=== PATIENT | male | born 1960 | race African-American/Black ===

== ENCOUNTER 2017-02-27 13:42 | Inpatient (IN) ==
[2017-02-27] MEDS ORDERED: ONDANSETRON 4 MG/2 ML VIAL IV PRN (15:37)
[2017-02-27] MEDS ORDERED: ACETAMINOPHEN 325 MG TABLET PO PRN (15:37)
[2017-02-27] MEDS ORDERED: ZALEPLON 5 MG CAPSULE PO PRN (15:37)
--- NOTE | 2017-02-27 15:57 | Hospitalist History & Physical ---
Assessment and Plan (1) Acute on chronic renal failure Status: Acute Assessment and plan: Patient has a history of FSGS with minimal change disease who developed worsening renal failure after receiving a fenofibrate. Consulted Dr. Taylor, renal biopsy in am, Urine studies ordered. Pulse dose steroids. lasix 60 mg IV every 6 hours. Plan renal biopsy in am. Current Visit: Yes (2) Hypertension Status: Acute Assessment and plan: restart clonidine Current Visit: Yes (3) Swelling Status: Acute Assessment and plan: most likely due to renal failure but will check venous dopplers and echo Current Visit: Yes (4) Obstructive sleep apnea Status: Acute Assessment and plan: cpap from home at bedtime. Current Visit: Yes History of Present Illness Chief complaint: swelling History of present illness: Mr. Robbins is a 56 year old male with a history of hypertension,monae, chronic kidney disease and hyperlipidemia presents to Dr. Taylor's office with complaints of bilateral upper and lower extremity edema with shortness of breath. Patient reports a 40 pound weight gain due to excessive fluid. His creatinine increase to 3.94. Patient was on Lasix and metolazone at home but his urination has diminished. He was started on a new medication given to him by Dr. Funk. Dr. Taylor has informed me that this medication was fenofibrate. 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 Patient will be admitted for diuresis and IV Solu-Medrol and a renal biopsy in the morning Home Medications Medication Instructions Recorded Confirmed Type Aspirin EC Tab 81 mg PO DAILY 02/27/17 02/27/17 History Atorvastatin [Lipitor] 20 mg PO DAILY 02/27/17 02/27/17 History Furosemide Tab [Lasix Tab] 40 mg PO BID DIURETIC 02/27/17 02/27/17 History Omeprazole 20 mg PO DAILY 02/27/17 02/27/17 History Potassium Chloride [Klor-Con M20] 20 meq PO DAILY 02/27/17 02/27/17 History cloNIDine TAB [Catapres Tab] 0.2 mg PO BID 02/27/17 02/27/17 History metOLazone [Metolazone] 5 mg PO DAILY 02/27/17 02/27/17 History Allergies Allergy/AdvReac Type Severity Reaction Status Date / Time fenofibrate AdvReac Severe Difficulty Verified 02/27/17 15:46 Breathing Medical,Surgical,& Family Hx - Medical History Cardio: History of: Hypertension Endocrine: History of: Dyslipidemia No history of: Diabetes Mellitus (IDDM), Diabetes Mellitus (NIDDM) Respiratory: History of: Obstructive Sleep Apnea Musculoskeletal: History of: Herniated Disk (back surgery) - Surgical History Cardiac Surgeries: Patient Denies: Cardiac Catheterization Abdominal Surgeries: Surgical HX of: Appendectomy Reproductive Surgeries: Patient denies;: Genitourinary Surgery Orthopedic Surgeries: Surgical HX of;: Orthopedic Surgery (back surgery) - Family History Family History: Reports;: Family Cancer (mother), Family Hypertension (mother and daddy), Family Stroke (mother,brother), Additional Family History (aneursym brain ) Denies;: Family Diabetes - Social History Smoking Status: Never smoker Frequency of Alcohol Use: None Type of Drug Use: None Marital Status: Lives With:: Spouse Functional capacity: independent ambulation - Constitutional Constitutional: Present: weight gain. Absent: headache(s), weakness - EENT Eyes: Absent: blurry vision, diplopia Ears: Absent: decreased hearing, ear discharge Nose, mouth and throat: Absent: headache(s), sore throat - Cardiovascular Cardiovascular: Present: dyspnea, dyspnea on exertion, edema, orthopnea, palpitations. Absent: chest pain at rest, chest pain with activity - Respiratory Respiratory: Present: dyspnea, dyspnea on exertion, snoring. Absent: wheezing - Gastrointestinal Gastrointestinal: Present: nausea. Absent: constipation, cramping, diarrhea, vomiting - Genitourinary Genitourinary: Present: urinary frequency. Absent: difficulty urinating, dysuria - Neurological Neurological: Absent: focal weakness, headache(s), syncope - Psychiatric Psychiatric: Absent: anxiety, depression - Endocrine Endocrine: Present: heat intolerance. Absent: fatigue - Hematologic/Lymphatic Hematologic/Lymphatic: Absent: easy bleeding, easy bruising Exam - Constitutional Vitals: Period Temp Pulse Resp BP Sys/Arguello Pulse Ox Last 24 Hr 97.6 F-97.6 F 53-53 20-20 144-144/78-78 95-95 General appearance: no acute distress, morbidly obese - Head Head exam: Present: normal inspection, normocephalic - Eye Eye exam: Present: EOMI. Absent: scleral icterus Pupils: Present: FARHAT, normal accommodation - ENT ENT exam: Present: normal exam, normal external ear exam - Neck Neck exam: Absent: lymphadenopathy, thyromegaly - Respiratory Respiratory exam: Present: decreased breath sounds. Absent: rhonchi, wheezes - Cardiovascular Cardiovascular exam: Present: regular rate and rhythm. Absent: systolic murmur - GI/Abdominal GI/Abdominal exam: Present: normal bowel sounds, distended. Absent: tenderness - Extremities Exam Extremities exam: Present: normal capillary refill, edema - Neurological Exam Neurological exam: Present: alert, oriented X3, CN II-XII intact, reflexes normal. Absent: motor sensory deficit - Psychiatric Psychiatric exam: Present: normal affect, normal mood - Skin Skin exam: Present: normal color, warm Results - Labs Labs: Sodium 138, potassium 4.1, BUN 88, creatinine is 3.94, glucose 112. Urine showed 1+ glucose, 2+ blood, 3+ protein, 0-3 WBCs and RBCs few bacteria, few granular casts and 3+ sulf
[2017-02-27] MEDS ORDERED: methylPREDNISolone SOD SUC 125 MG/2 ML VIAL IV SCH (16:00)
[2017-02-27] MEDS ORDERED: GLUCAGON 1 MG VIAL IM PRN (16:04)
[2017-02-27] MEDS ORDERED: DEXTROSE 50% 25 GM/50 ML SYRINGE IV PRN (16:04)
[2017-02-27 16:23] LABS: Basophils % 0.2 % (0.0-0.8); Eosinophils # 0.2 10*3/uL (0.0-0.87); Eosinophils % 1.5 % (0.00-10.9); Hematocrit 44.4 VOL% (42.0-52.0); Hemoglobin 14.6 GM/DL (14.0-18.0); Immature Granulocytes % 0.5 %; Immature Granulocytes Absolute 0.06 #; Lymphocytes # 2.5 10*3/uL (1.4-4.0); Lymphocytes % 21.7 % (21.2-54.2); Mean Corpuscular HGB Conc 32.9 GM/DL (32-36); Mean Corpuscular Hemoglobin 28 PG (27-34); Mean Corpuscular Volume 85.1 FL (87-102); Mean Platelet Volume 11.2 FL (9.6-12.0); Monocytes # 0.6 10*3/uL (0.11-0.8); Monocytes % 5.5 % (1.7-12.7); Neutrophils # 8.1 10*3/uL (1.4-7.4); Neutrophils % 70.6 % (38.7-73.9); Platelet Count 499 T/CUMM (130-400); Red Blood Count 5.22 MC/CUMM (3.8-5.5); Red Cell Distribution Width 12.4 % (9.3-17.3); White Blood Count 11.5 T/CUMM (4-12)
[2017-02-27 16:36] LABS: PT Patient Result 10.5 SECS; Partial Thromboplastin Time 30.3 SECS (0-40)
--- NOTE | 2017-02-27 16:39 | XRay Report ---
XR chest 2V Date: 02/27/2017 3:46 PM History: Shortness of breath Comparison: 04/25/2011 Technique: PA and lateral chest Findings: The heart is normal in size. The lungs are clear with unremarkable mediastinum. Degenerative changes are noted. Impression: No acute cardiopulmonary pathology identified. PROCEDURE INTERPRETED AT [facility] DEPARTMENT OF RADIOLOGY Final Report Signed by: Dr. Zuleyma Del Cid
[2017-02-27 16:44] LABS: Alanine Aminotransferase 17 U/L (16-61); Alkaline Phosphatase 87 U/L (45-117); Aspartate Amino Transferase 22 U/L (0-37); Bilirubin,Direct < 0.10 MG/DL (0.0-0.20); Bilirubin,Indirect 0.3 MG/DL (0.0-1.0); Bilirubin,Total < 0.39 MG/DL (0.2-1.0); Total Protein 4.2 G/DL (6.4-8.3)
--- NOTE | 2017-02-27 16:44 | Ultrasound Report ---
Exam: Bilateral lower extremity venous Doppler ultrasound Comparison: None Clinical history: Leg edema Technique: Duplex scan of the lower extremity veins using B-mode/grayscale scaled imaging and Doppler spectral analysis and color flow. Findings: Major venous structures of the lower extremities demonstrate a normal course and caliber. Normal color-flow study and spectral analysis. There is normal compression and augmentation of bilateral common femoral, superficial femoral and popliteal veins. The proximal bilateral greater saphenous veins appear to be patent. 73 x 67 x 27 mm solid mass projecting in the upper medial right thigh location. This finding is echogenic. Impression: No evidence to suggest deep venous thrombosis within either lower extremity. 73 x 67 x 27 mm solid mass projecting the medial right upper thigh location. This finding is probably related to a lipoma but CT or MRI may be helpful for further evaluation. Ultrasound images were captured and stored. PROCEDURE INTERPRETED AT [facility] DEPARTMENT OF RADIOLOGY Final Report Signed by: Dr. Zuleyma Del Cid
--- NOTE | 2017-02-27 16:45 | Ultrasound Report ---
Exam: US renal Bilateral Date: 02/27/2017 3:37 PM Comparison: None Indication: Elevated creatinine Technique:[Multiple transabdominal real-time scans were obtained of the kidneys. Ultrasound images were captured and stored.] Findings: Right kidney measures 119 x 62 x 58 mm. Left kidney measures 110 x 65 x 65 mm. No hydronephrosis or mass. Inhomogeneous echogenicity in the kidneys. Impression: The kidneys are symmetric in size with no mass or hydronephrosis. Inhomogeneous echogenicity which can be seen with possible medical renal disease. PROCEDURE INTERPRETED AT [facility] DEPARTMENT OF RADIOLOGY Final Report Signed by: Dr. Zuleyma Del Cid
[2017-02-27 16:58] LABS: Magnesium 3.2 MG/DL (1.8-2.4)
[2017-02-27] MEDS: FUROSEMIDE 40 MG/4 ML VIAL IV SCH ×2 (17:30→21:39)
[2017-02-27] MEDS: INSULIN LISPRO 100 UNIT/ML SUBCUT SCH ×2 (17:36→21:38)
--- NOTE | 2017-02-27 17:45 | Nephrology Consult Note ---
History of Present Illness Chief complaint: Acute renal failure History of present illness: Mr. Robbins is a 56 year old male with a history of hypertension chronic kidney disease is followed by me in my clinic kidney disease clinic. The patient had a kidney biopsy done in 2010 that showed focal segmental glomerulosclerosis with tip lesions with some interstitial inflammation at that time. Moreover patient had a history of NSAID use during the time of the kidney biopsy. He had post steroid pulse his serum creatinine continued to improve as well as proteinuria improved. He had been doing well up until a few weeks ago serum creatinine noted to be 0.8 when he started noticing increase in swelling and fatigue. He went to his local doctor where he was found to have an elevated serum creatinine of 3.5. There was evidence of proteinuria noted by urinalysis. He was followed-up in my clinic today where lab work was confirmed. He had been on increased dose of steroids however no improvement. No fevers or chills. He gives a history that he had been on fenofibrate therapy for cholesterol management a few weeks ago. His lisinopril has been discontinued as well as the fenofibrate. He has been admitted now for further workup of his acute renal failure. Nephrology is consulted for further management of the acute renal failure. At this time, recommend the patient gets follow-up kidney biopsy. Have discussed the case with interventional radiology for kidney biopsy. We will do pulse steroids as this patient did respond to steroids back in 2010. Differential diagnoses includes: Minimal-change disease. FSGS. Diabetic nephropathy Home Medications Medication Instructions Recorded Confirmed Type Aspirin EC Tab 81 mg PO DAILY 02/27/17 02/27/17 History Atorvastatin [Lipitor] 20 mg PO DAILY 02/27/17 02/27/17 History Furosemide Tab [Lasix Tab] 40 mg PO BID DIURETIC 02/27/17 02/27/17 History Omeprazole 20 mg PO DAILY 02/27/17 02/27/17 History Potassium Chloride [Klor-Con M20] 20 meq PO DAILY 02/27/17 02/27/17 History cloNIDine TAB [Catapres Tab] 0.2 mg PO BID 02/27/17 02/27/17 History metOLazone [Metolazone] 5 mg PO DAILY 02/27/17 02/27/17 History Allergies Allergy/AdvReac Type Severity Reaction Status Date / Time fenofibrate AdvReac Severe Difficulty Verified 02/27/17 15:46 Breathing Medical,Surgical,& Family Hx - Medical History Cardio: History of: Hypertension Endocrine: History of: Dyslipidemia No history of: Diabetes Mellitus (IDDM), Diabetes Mellitus (NIDDM) Respiratory: History of: Obstructive Sleep Apnea Musculoskeletal: History of: Herniated Disk (back surgery) - Surgical History Cardiac Surgeries: Patient Denies: Cardiac Catheterization Abdominal Surgeries: Surgical HX of: Appendectomy Reproductive Surgeries: Patient denies;: Genitourinary Surgery Orthopedic Surgeries: Surgical HX of;: Orthopedic Surgery (back surgery) - Family History Family History: Reports;: Family Cancer (mother), Family Hypertension (mother and daddy), Family Stroke (mother,brother), Additional Family History (aneursym brain ) Denies;: Family Diabetes - Social History Smoking Status: Never smoker Frequency of Alcohol Use: None Type of Drug Use: None Review of Systems Constitutional: fatigue Cardiovascular: dyspnea, no chest pain at rest Respiratory: dyspnea Gastrointestinal: bloating, no abdominal pain Musculoskeletal: no arthralgias Exam - Vital Signs Vital signs: Period Temp Pulse Resp BP Sys/Arguello Pulse Ox Last 24 Hr 96.2 F-97.6 F 50-53 20-20 144-169/78-83 95-97 - General Appearance General appearance: well-developed, well-nourished, fatigue EENT: ATNC Neck: supple Respiratory: clear Cardiology: edema, regular rate, regular rhythm Gastrointestinal: normoactive bowel sounds, no tenderness, no guarding Neurologic: alert and oriented x3, CN 3-12 intact Musculoskeletal: no clubbing Psychiatric: mood/affect appropriate, cooperative Results - Labs CBC & BMP: 02/27/17 16:11 Assessment and Plan (1) Proteinuria Status: Acute Assessment and plan: Acute on chronic phenomenon. Will quantitate proteinuria. Plan for kidney biopsy. Patient has a history of minimal change versus FSGS that dates back to kidney biopsy done in 2010. This should respond to steroid pulse. Current Visit: Yes (2) Acute on chronic renal failure Status: Acute Assessment and plan: Daily BMP. Avoid nephrotoxic agents. Strict I's and O's. Daily weights. Agree with Lasix therapy. We will do pulse steroids for the next 3 days with 1 g stent Solu-Medrol for the next 3 days. Patient will transition to p.o. prednisone. Also making arrangements for kidney biopsy. Current Visit: Yes (3) Hypertension Status: Chronic Current Visit: Yes Qualifiers: Hypertension type: essential hypertension Qualified Code(s): I10 - Essential (primary) hypertension (4) Swelling Status: Acute Assessment and plan: Agree with Lasix therapy. Current Visit: Yes (5) Obstructive sleep apnea Status: Chronic Current Visit: Yes
[2017-02-27] MEDS: methylPREDNISolone SOD SUC INJ 1,000 MG in SODIUM CHLORIDE 0.9% 100 ML IV SCH (18:21)
[2017-02-27 19:33] LABS: Hepatitis A Ab IgM Quant 0.14 Index; Hepatitis A Ab IgM Result Negative (Negative); Hepatitis B Core IgM Quant < 0.05 Index; Hepatitis B Core IgM Result Negative (Negative); Hepatitis B Surface Ag Result Negative (Negative); Hepatitis C Virus Ab Quant 0.18 Index; Hepatitis C Virus Ab Result Negative (Negative)
[2017-02-27 19:49] LABS: Apearance,Urine CLEAR (Clear); Bacteria,Urine Occasional /HPF (Few); Bilirubin,Urine Negative (Negative); Blood, Urine Small mg/dL (Negative); Glucose,Urine (UA) 50 mg/dL (Negative); Hyaline Casts,Urine 4 /LPF (0-3); Ketones,Urine Negative (Negative); Mucus,Urine Occasional /LPF (Occasional); Nitrite,Urine Negative (Negative); Protein,Urine >=500 MG/DL; RBC,Urine 4 /HPF (0-4); Squamous Epithelial Cell,Urine Occasional /HPF (0-10); Urine Color Yellow (Yellow); Urine Urobilinogen < 2.0 EU/DL (0.2-1.0); WBC,Urine 4 /HPF (0-6)
[2017-02-27 20:06] LABS: Protein/Creatinine Ratio,Urine 10.3 RATIO
[2017-02-27] MEDS ORDERED: FUROSEMIDE 20 MG/2 ML VIAL ONE (21:34)
[2017-02-28 01:11] LABS: Osmolality, Serum 314 MOSM/KG (275-295)
[2017-02-28] MEDS: FUROSEMIDE 40 MG/4 ML VIAL IV SCH ×4 (04:14→21:30)
[2017-02-28 05:56] LABS: Risk Ratio 7.28; VLDL CHOLESTEROL 54.8 MG/DL
[2017-02-28] MEDS: INSULIN LISPRO 100 UNIT/ML SUBCUT SCH ×4 (07:35→20:13)
[2017-02-28 08:21] LABS: Alanine Aminotransferase 17 U/L (16-61); Alkaline Phosphatase 82 U/L (45-117); Aspartate Amino Transferase 16 U/L (0-37); Bilirubin,Total < 0.39 MG/DL (0.2-1.0); Blood Urea Nitrogen 89 MG/DL (7-18); Calcium 8.5 MG/DL (8.5-10.1); Glucose 142 MG/DL (74-106); Osmolality,Calculated 301.8 MOS/KG (273-304); Potassium 4.5 MMOL/L (3.5-5.1); Sodium 137 MMOL/L (136-145); Total Protein 4.1 G/DL (6.4-8.3)
[2017-02-28] MEDS: PANTOPRAZOLE 40 MG TABLET PO SCH (09:06)
[2017-02-28] MEDS: ATORVASTATIN 20 MG TABLET PO SCH (09:06)
--- NOTE | 2017-02-28 09:10 | IR History and Physical Update ---
IR Pre-Procedure - History and Physical H&P was reviewed, the patient examined and there: are no changes in the patients condition since last H&P was completed. Reason for procedure:: acute renal failure - Dictation Physical: refer to H&P completed by admitting physician - Physical Exam Vital Signs: Last Vital Signs Temp 96.5 F L 02/28/17 08:00 Pulse 47 L 02/28/17 08:00 Resp 20 02/28/17 07:05 BP 161/78 02/28/17 08:00 Pulse Ox 97 02/28/17 08:00 Mental Status: alert and oriented Heart: regular rate and rhythm Lung: clear to auscultation Abdomen: within normal limits - Sedation IR anesthesia plan for sedation: none ASA Class: II Airway Assessment: Class IV: Only hard palate visible - Risks Risks: Procedures explained. Risks discussed include, but not limited to, the following:[ bleeding, infection, injury to adjacent structures] All questions answered. The following alternatives were discussed:[ none] Risks and benefits discussed with: patient, spouse Consent obtained from: patient, spouse Assessment and Plan - Time spent with patient Time spent with patient: Less than 30 minutes (1) Acute on chronic renal failure Problem details: renal biopsy several years ago showe FSGS which responded to steroids Status: Acute Assessment and plan: plan for repeat biopsy today Current Visit: Yes
[2017-02-28] MEDS ORDERED: DIAZEPAM 5 MG TABLET PO ONE (09:12)
--- NOTE | 2017-02-28 11:55 | Nephrology Progress Note ---
Nephrology - PN: Subj Interval history: Patient is in the process of getting his kidney biopsy. No acute changes. Serum creatinine is noted be 3.9. At present, serologic workup has been unremarkable. DAMON unremarkable. Complement levels are normal. Hepatitis panel is normal. Pending studies for anti-GBM antibody. We will also check an HIV. Exam (PN)-Nephrology - Vital Signs Vital signs: Period Temp Pulse Resp BP Sys/Arguello Pulse Ox Last 24 Hr 96.2 F-97.6 F 47-78 16-22 144-175/68-97 95-98 - General Appearance General appearance: well-developed, well-nourished EENT: ATNC Neck: supple Respiratory: clear Cardiology: regular rate, regular rhythm Gastrointestinal: normoactive bowel sounds, no tenderness Neurologic: alert and oriented x3 Musculoskeletal: no clubbing Psychiatric: mood/affect appropriate - Lab 02/27/17 16:11 02/28/17 04:45 Most recent lab results Calcium 8.5 MG/DL (8.5-10.1) 02/28/17 04:45 Magnesium 3.2 MG/DL (1.8-2.4) H 02/27/17 16:11 Assessment and Plan (1) Proteinuria Status: Acute Assessment and plan: Acute on chronic phenomenon. Will quantitate proteinuria. Plan for kidney biopsy. Patient has a history of minimal change versus FSGS that dates back to kidney biopsy done in 2010. This should respond to steroid pulse. We will check HIV. Hepatitis panel is normal. Pending anti-GBM Current Visit: Yes (2) Acute on chronic renal failure Problem details: renal biopsy several years ago showe FSGS which responded to steroids Status: Acute Assessment and plan: Daily BMP. Avoid nephrotoxic agents. Strict I's and O's. Daily weights. Agree with Lasix therapy. We will do pulse steroids for the next 3 days with 1 g stent Solu-Medrol for the next 3 days. Patient will transition to p.o. prednisone. Current Visit: Yes (3) Hypertension Status: Chronic Current Visit: Yes Qualifiers: Hypertension type: essential hypertension Qualified Code(s): I10 - Essential (primary) hypertension (4) Swelling Status: Acute Assessment and plan: Agree with Lasix therapy. Current Visit: Yes (5) Obstructive sleep apnea Status: Chronic Current Visit: Yes
--- NOTE | 2017-02-28 12:11 | Post Interventional Procedure ---
Pre-op diagnosis: acute on chronic renal failure of unknown cause Post-op diagnosis: same Procedure: random renal biopsy Contrast: none Flouroscopy: none Radiologist: Kendrick Bush Anesthesia: local Specimens: other (4 total 18 ga core samples sent for renal path) Estimated blood loss: none Complications: none Condition: stable Description/Findings: lower pole of the left kidney targeted for biopsy patient tolerated well Assessment and Plan - Time spent with patient Time spent with patient: Less than 30 minutes (1) Acute on chronic renal failure Problem details: renal biopsy several years ago showe FSGS which responded to steroids Status: Acute Assessment and plan: plan for repeat biopsy today Current Visit: Yes
[2017-02-28] MEDS: methylPREDNISolone SOD SUC INJ 1,000 MG in SODIUM CHLORIDE 0.9% 100 ML IV SCH (12:36)
[2017-02-28 13:25] LABS: HIV Antigen/Antibody Result Nonreactive (Nonreactive)
--- NOTE | 2017-02-28 14:13 | CT Report ---
CT biopsy renal LT Clinical Information: 56-year-old male with acute on chronic renal failure and remote biopsy several years ago demonstrating FSGS which responded to steroids. Physician: Dr. Bush Technique: Informed consent was obtained from the patient. Full explanation of the nature of the procedure, alternatives and risks were discussed, including risks of bleeding, infection and potential inability to diagnose with needle technique. Adjacent vascular and organ injury were also fully discussed. He expressed understanding and a desire to proceed. Formal timeouts were performed, per protocol. Local anesthesia only was used for the procedure. The lower pole left kidney was targeted on noncontrast CT scanning of the abdomen. CT guided localization of the cortex of the left kidney at the lower pole. Under real time guidance, 4 total core biopsies were obtained using an 18-gauge system and submitted in fixative for renal specific pathologic analysis. Follow-up imaging demonstrated no evidence of pneumothorax, hemorrhage or other immediate complication. Estimated blood loss less than 5 cc. Total number of images for this study: 129 Conclusion: Technically successful CT guided random renal biopsy as detailed above. PROCEDURE INTERPRETED AT [facility] DEPARTMENT OF RADIOLOGY Final Report Signed by: Kendrick Bush
--- NOTE | 2017-02-28 15:11 | Hospitalist Progress Note ---
Assessment and Plan (1) Acute on chronic renal failure Problem details: renal biopsy several years ago showe FSGS which responded to steroids Status: Acute Assessment and plan: Patient has a history of FSGS urine output is good but creatinine has remained unchanged. Workup pending Current Visit: Yes (2) Hypertension Status: Chronic Assessment and plan: Not controlled on clonidine, will add Norvasc 5 mg daily Current Visit: Yes Qualifiers: Hypertension type: essential hypertension Qualified Code(s): I10 - Essential (primary) hypertension (3) Swelling Status: Acute Assessment and plan: venous dopplers negative, echo done by reading pending Current Visit: Yes (4) Obstructive sleep apnea Status: Chronic Assessment and plan: cpap from home at bedtime. Current Visit: Yes Hospitalist: Subjective Interval history: Creatinine is relatively unchanged from yesterday. Patient refused Sandoval. post void residual 60 ml, UO 1450 Exam - Constitutional Vitals: Period Temp Pulse Resp BP Sys/Arguello Pulse Ox Last 24 Hr 96.2 F-97.6 F 47-78 15-22 136-178/68-97 93-98 Exam: Heart Rate-[RRR] Lungs-[CTAB but very diminished ] GI-[+bs distended from edema] Ext-[3+ edema] Neuro [Motor 5/5], [alert and oriented times 3] psych [normal mood and affect] General [no acute distress] Results - Labs CBC & BMP: 02/27/17 16:11 02/28/17 04:45 Lab Results: I have reviewed the past 24 hour labs - Diagnostic Findings Procedure: Chest x-ray: report reviewed by me (Clear), Ultrasound: report reviewed by me (No DVT does have a lipoma on the right thigh), X-ray: report reviewed by me (Ultrasound of the kidneys symmetric in size no hydronephrosis evidence of medical renal disease is present however)
[2017-02-28] MEDS: amLODIPine 5 MG TABLET PO SCH (16:00)
--- NOTE | 2017-02-28 17:46 | ECHO Report ---
Ramesh Robbins Exam Date: 02/28/2017 07:34 Referring Physician: Technologist: quiana Lara ARDMS, RVT Age: 56 Ht (in): 67 Wt (lb): 297 Gender: M Exam Location: [facility] Echo Indications: Shortness of breath, Acute hypertension, MER, Dyslipidemia, Renal failure BP: 144 / 78 HR: 69 Rhythm: Sinus Technical Quality: IMPRESSIONS Technically difficult study Normal chamber sizes Normal LV systolic function with ejection fraction estimated 65% without obvious wall motion normality No significant valvular abnormality noted MEASUREMENTS (Male / Female) Normal Values 2D ECHO LV Diastolic Diameter PLAX 5.1 cm 4.2 - 5.9 / 3.9 - 5.3 cm LV Systolic Diameter PLAX 3.0 cm LV Fractional Shortening PLAX 41.9 % IVS Diastolic Thickness 0.6 cm 0.6 - 1.0 / 0.6 - 0.9 cm LVPW Diastolic Thickness 1.0 cm 0.6 - 1.0 / 0.6 - 0.9 cm RV Internal Dim ED PLAX 4.0 cm Aortic Root Diameter 2.9 cm LA Systolic Diameter LX 3.0 cm 3.0 - 4.0 / 2.7 - 3.8 cm FINDINGS Left Ventricle Normal left ventricular cavity size. Normal left ventricular wall thickness. Left ventricular ejection fraction is estimated at 65%. Right Ventricle Right Atrium The right atrium is normal in size. Left Atrium The left atrium is normal in size. Mitral Valve Morphologically normal mitral valve without significant stenosis or prolapse. There is no mitral regurgitation. Aortic Valve Morphologically normal aortic valve without significant sclerosis or stenosis. There is no aortic regurgitation. Tricuspid Valve Morphologically normal tricuspid valve without significant stenosis or regurgitation. Pulmonary artery systolic pressure is normal. Pulmonic Valve Morphologically normal pulmonic valve without significant stenosis. There is no pulmonic regurgitation. Pericardium Normal pericardium without effusion. Aorta Normal ascending aorta dimension. Zachariah Luke (Electronically Signed) Final Date: 28 February 2017 17:46
[2017-02-28] MEDS ORDERED: FUROSEMIDE 100 MG/10 ML VIAL ONE (19:51)
[2017-03-01] MEDS: FUROSEMIDE 40 MG/4 ML VIAL IV SCH ×3 (03:43→20:57)
[2017-03-01 05:41] LABS: Basophils % 0.1 % (0.0-0.8); Hematocrit 42.9 VOL% (42.0-52.0); Hemoglobin 14.4 GM/DL (14.0-18.0); Immature Granulocytes % 0.6 %; Immature Granulocytes Absolute 0.07 #; Lymphocytes # 1.3 10*3/uL (1.4-4.0); Lymphocytes % 10.7 % (21.2-54.2); Mean Corpuscular HGB Conc 33.6 GM/DL (32-36); Mean Corpuscular Hemoglobin 28 PG (27-34); Mean Corpuscular Volume 83.8 FL (87-102); Mean Platelet Volume 11.3 FL (9.6-12.0); Monocytes # 0.3 10*3/uL (0.11-0.8); Monocytes % 2.5 % (1.7-12.7); Neutrophils # 10.1 10*3/uL (1.4-7.4); Neutrophils % 86.1 % (38.7-73.9); Platelet Count 520 T/CUMM (130-400); Red Blood Count 5.12 MC/CUMM (3.8-5.5); Red Cell Distribution Width 12.3 % (9.3-17.3); White Blood Count 11.7 T/CUMM (4-12)
[2017-03-01 06:14] LABS: Albumin 1.1 G/DL (3.4-5.0); Calcium 7.8 MG/DL (8.5-10.1); Phosphorous 8.2 MG/DL (2.5-4.9); Potassium 4.9 MMOL/L (3.5-5.1)
[2017-03-01] MEDS: INSULIN LISPRO 100 UNIT/ML SUBCUT SCH ×4 (07:24→20:26)
[2017-03-01] MEDS: methylPREDNISolone SOD SUC INJ 1,000 MG in SODIUM CHLORIDE 0.9% 100 ML IV SCH (09:40)
[2017-03-01] MEDS: PANTOPRAZOLE 40 MG TABLET PO SCH (09:41)
[2017-03-01] MEDS: amLODIPine 5 MG TABLET PO SCH (09:41)
[2017-03-01] MEDS: ATORVASTATIN 20 MG TABLET PO SCH (09:41)
--- NOTE | 2017-03-01 09:43 | Nephrology Progress Note ---
Nephrology - PN: Subj Interval history: Mr. Robbins is seen in follow-up of his nephrotic range proteinuria and rising creatinine. He underwent renal biopsy yesterday and hopefully will hear the results of that today. Previous biopsy several years ago demonstrated focal segmental glomerulosclerosis and he responded to steroid therapy. He has received empiric steroid therapy since being here and has had his third dose of pulse steroids today. I think it is reasonable at this point to assume that this is focals segmental glomerulosclerosis again and began lower dose prednisone tomorrow along with CellCept. He has generous peripheral edema but is not short of breath. We have encouraged him to be up and around. Will increase his diuretic dose to 160 mg of Lasix IV every 12 hours and add Zaroxolyn 5 mg daily. We have coordinated care with Dr. Harriet Jackson. Exam (PN)-Nephrology - Vital Signs Vital signs: Period Temp Pulse Resp BP Sys/Arguello Pulse Ox Last 24 Hr 96.8 F-98 F 47-79 15-20 132-178/55-97 93-99 - Lab 03/01/17 05:26 03/01/17 05:26 Most recent lab results Calcium 7.8 MG/DL (8.5-10.1) L 03/01/17 05:26 Phosphorus 8.2 MG/DL (2.5-4.9) H 03/01/17 05:26 Magnesium 3.2 MG/DL (1.8-2.4) H 02/27/17 16:11
[2017-03-01] MEDS: metOLazone 5 MG TABLET PO SCH (10:25)
--- NOTE | 2017-03-01 14:54 | Hospitalist Progress Note ---
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 Davey is awaiting renal biopsy results, he has increased lasix 160 mg IV every 12 hours with zaroxlyn. Patient will finish his last day of pulse steroids today and be decreased to prednisone 30 mg and started on CellCept tomorrow Current Visit: Yes (2) Hypertension Status: Chronic Assessment and plan: may need to stop clonidine due to bradycardia, but he is rather asymptomatic. Current Visit: Yes Qualifiers: Hypertension type: essential hypertension Qualified Code(s): I10 - Essential (primary) hypertension (3) Obstructive sleep apnea Status: Chronic Assessment and plan: compliant with cpap Current Visit: Yes Hospitalist: Subjective Interval history: Patient feels like he is getting off some fluid. His creatinine has worsened. I discussed his case with Dr. Moises Davey and he is going to lower the steroid dose beginning tomorrow and start some CellCept. Urine output from yesterday was 1950 Exam - Constitutional Vitals: Period Temp Pulse Resp BP Sys/Arguello Pulse Ox Last 24 Hr 97 F-98 F 47-79 18-20 129-177/55-89 96-99 Exam: Heart Rate-[RRR] Lungs-[CTAB ] GI-[+bs edema is better Ext-[2+ edema] Neuro [Motor 5/5], [alert and oriented times 3] psych [Pleasant mood and affect] General [no acute distress] Results - Labs CBC & BMP: 03/01/17 05:26 03/01/17 05:26 Lab Results: I have reviewed the past 24 hour labs Labs: urine cx negative - Diagnostic Findings Procedure: Ultrasound: report reviewed by me (EF 65% no other abnormalities appreciated.)
[2017-03-01] MEDS: MYCOPHENOLATE MOFETIL 250 MG CAPSULE PO SCH (20:53)
[2017-03-02 03:40] LABS: Albumin 1.2 G/DL (3.4-5.0); Osmolality,Calculated 310.8 MOS/KG (273-304); Phosphorous 7.8 MG/DL (2.5-4.9); Potassium 4.2 MMOL/L (3.5-5.1)
[2017-03-02] MEDS: INSULIN LISPRO 100 UNIT/ML SUBCUT SCH (08:30)
[2017-03-02] MEDS: MYCOPHENOLATE MOFETIL 250 MG CAPSULE PO SCH ×2 (08:49→20:15)
[2017-03-02] MEDS: ATORVASTATIN 20 MG TABLET PO SCH (08:49)
[2017-03-02] MEDS: metOLazone 5 MG TABLET PO SCH (08:50)
[2017-03-02] MEDS: amLODIPine 5 MG TABLET PO SCH (08:50)
[2017-03-02] MEDS: PANTOPRAZOLE 40 MG TABLET PO SCH (08:51)
[2017-03-02] MEDS: predniSONE 10 MG TABLET PO SCH (08:53)
[2017-03-02] MEDS: FUROSEMIDE 40 MG/4 ML VIAL IV SCH ×2 (08:57→20:17)
[2017-03-02] MEDS ORDERED: FUROSEMIDE 100 MG/10 ML VIAL ONE (08:59)
--- NOTE | 2017-03-02 11:25 | Nephrology Progress Note ---
Nephrology - PN: Subj Interval history: Patient denies shortness of breath. Review of systems GI denies nausea or vomiting Physical exam general patient is chronically ill-appearing, he has 2+ lower extremity edema Kidney biopsy report shows focal segmental glomerulosclerosis, acute tubular injury, no significant immunofluorescence, and some thin basement membrane disease Assessment/plan 1. Acute renal failure-this patient states his creatinine has only risen recently. Today his creatinine is 4.7 stable from yesterday 2. Proteinuria-patient had a urine protein to creatinine ratio that is 10 however I am not sure what the units on the protein are, I am going to repeat a microalbumin to creatinine ratio hopefully the lab will tell us whether it is milligrams per gram of creatinine or grams per gram of creatinine. Based on his urine dipstick being greater than 500 mg/dL I would suspect that he has significant proteinuria but would like a better quantification. 3. Focal segmental glomerulosclerosis-patient has FSGS by kidney biopsy however I am not sure that this is indicative of a primary FSGS which one would treat with steroids and immunosuppressive's. This lesion at this point may be more indicative of scarring. 4. Acute tubular injury-this patient has moderate acute tubular injury by kidney biopsy, this may be the primary pathology responsible for his acute rise in creatinine and protein leakage, if this is the case I am not sure that he would need continued steroid and immunosuppressive therapy. Again I am going to try and quantify his protein leakage better with the microalbumin to creatinine ratio. 5. Volume overload-patient continues on diuretics, patient states that this issue developed about a week after starting a cholesterol-lowering medication in the form of fenofibrate, he noticed some skin rash associated when he started taking this medicine as well. Exam (PN)-Nephrology - Vital Signs Vital signs: Period Temp Pulse Resp BP Sys/Arguello Pulse Ox Last 24 Hr 96.2 F-98 F 45-58 18-20 129-157/60-82 95-99 - Lab 03/01/17 05:26 03/02/17 02:20 Most recent lab results Calcium 7.0 MG/DL (8.5-10.1) L 03/02/17 02:20 Phosphorus 7.8 MG/DL (2.5-4.9) H 03/02/17 02:20 Magnesium 3.2 MG/DL (1.8-2.4) H 02/27/17 16:11
[2017-03-02 13:49] LABS: Microalbum/Creat Ratio Random 5302.3 RATIO (0-30)
--- NOTE | 2017-03-02 15:25 | Hospitalist Progress Note ---
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 Continue prednisone and CellCept Current Visit: Yes (2) Hypertension Status: Chronic Assessment and plan: Controlled Current Visit: Yes Qualifiers: Hypertension type: essential hypertension Qualified Code(s): I10 - Essential (primary) hypertension (3) Obstructive sleep apnea Status: Chronic Assessment and plan: compliant with cpap Current Visit: Yes (4) Hyperglycemia Status: Acute Assessment and plan: Hemoglobin A1c 5.2, stop insulin sliding scale. Current Visit: Yes Hospitalist: Subjective Interval history: Biopsy received yesterday showed focal glomerulosclerosis, minimal change disease. Patient feels much better today as he is diuresed well. Exam - Constitutional Vitals: Period Temp Pulse Resp BP Sys/Arguello Pulse Ox Last 24 Hr 96.2 F-98 F 45-76 18-20 131-157/60-82 95-99 Exam: Heart Rate-[RRR] Lungs-[CTAB ] GI-[+bs soft and nontender Ext-[2+ edema but better] Neuro [Motor 5/5], [alert and oriented times 3] psych [Pleasant mood and affect] General [no acute distress] Results - Labs CBC & BMP: 03/01/17 05:26 03/02/17 02:20 Lab Results: I have reviewed the past 24 hour labs
[2017-03-02] MEDS ORDERED: LACTULOSE 20 GM/30 ML UDCUP PO PRN (17:34)
[2017-03-02] MEDS ORDERED: BISACODYL 5 MG TABLET PO PRN (17:34)
[2017-03-03 05:36] LABS: Albumin 1.1 G/DL (3.4-5.0); Calcium 7.2 MG/DL (8.5-10.1); Osmolality,Calculated 314.8 MOS/KG (273-304); Phosphorous 7.7 MG/DL (2.5-4.9)
[2017-03-03] MEDS ORDERED: FUROSEMIDE 20 MG/2 ML VIAL ONE ×2 (08:11→08:13)
[2017-03-03] MEDS: ATORVASTATIN 20 MG TABLET PO SCH (08:23)
[2017-03-03] MEDS: PANTOPRAZOLE 40 MG TABLET PO SCH (08:23)
[2017-03-03] MEDS: amLODIPine 5 MG TABLET PO SCH (08:23)
[2017-03-03] MEDS: metOLazone 5 MG TABLET PO SCH (08:23)
[2017-03-03] MEDS: MYCOPHENOLATE MOFETIL 250 MG CAPSULE PO SCH ×2 (08:23→20:31)
[2017-03-03] MEDS: predniSONE 10 MG TABLET PO SCH (08:23)
[2017-03-03] MEDS: FUROSEMIDE 40 MG/4 ML VIAL IV SCH ×2 (08:24→20:33)
--- NOTE | 2017-03-03 10:46 | Hospitalist Progress Note ---
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 Renal biopsy shows focal glomerulosclerosis with minimal change disease Current Visit: Yes (2) Hypertension Status: Chronic Assessment and plan: Controlled Current Visit: Yes Qualifiers: Hypertension type: essential hypertension Qualified Code(s): I10 - Essential (primary) hypertension (3) Obstructive sleep apnea Status: Chronic Assessment and plan: compliant with cpap Current Visit: Yes (4) Hyperglycemia Status: Acute Assessment and plan: Hemoglobin A1c 5.2, stop insulin sliding scale. Current Visit: Yes Hospitalist: Subjective Interval history: Patient has no complaints today. His creatinine has improved today. His is not at bedside today. He is hoping to go home soon. I will defer to renal. Dr. Taylor will return tomorrow Exam - Constitutional Vitals: Period Temp Pulse Resp BP Sys/Arguello Pulse Ox Last 24 Hr 96.8 F-97.8 F 48-76 18-19 136-150/64-80 94-98 Exam: Heart Rate-[RRR] Lungs-[CTAB ] GI-[+bs soft and nontender Ext-[2+ edema but better] Neuro [Motor 5/5], [alert and oriented times 3] psych [Pleasant mood and affect] General [no acute distress] Results - Labs CBC & BMP: 03/01/17 05:26 03/03/17 04:14 Lab Results: I have reviewed the past 24 hour labs Labs: Urine culture negative, HIV negative, complement 50 within normal range
--- NOTE | 2017-03-03 14:28 | Nephrology Progress Note ---
Nephrology - PN: Subj Interval history: Patient denies shortness of breath. Review of systems GI denies nausea or vomiting Physical exam general patient in no acute distress Assessment/plan 1. Acute renal failure-patient status post renal biopsy-this showed focal segmental glomerulosclerosis as well as thin basement membrane processes and acute tubular injury. He is currently getting prednisone 30 mg a day and mycophenolate mofetil. We will continue this treatment unchanged. Whether the FSGS represents an active primary recurrent lesion versus some previous scarring is difficult to say I will defer treatment changes to primary greeter Dr. Taylor 2. Proteinuria-this patient has about 5000 mg of albumin leaking in his urine per day 3. Obesity 4. Hypertension 5. Volume overload-patient's on Lasix 160 mg IV twice a day and metolazone his weight is down about a KG from yesterday we will continue this treatment unchanged. Exam (PN)-Nephrology - Vital Signs Vital signs: Period Temp Pulse Resp BP Sys/Arguello Pulse Ox Last 24 Hr 96.1 F-97.8 F 45-66 18-19 142-150/64-80 94-98 - Lab 03/01/17 05:26 03/03/17 04:14 Most recent lab results Calcium 7.2 MG/DL (8.5-10.1) L 03/03/17 04:14 Phosphorus 7.7 MG/DL (2.5-4.9) H 03/03/17 04:14 Magnesium 3.2 MG/DL (1.8-2.4) H 02/27/17 16:11
--- NOTE | 2017-03-04 08:42 | Hospitalist Progress Note ---
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 Focal segmental glomerulosclerosis with proteinuria 2. Hypertension Plan: Continue diuretics and immunosuppressives under the direction of nephrology. He appears to be diuresing well, at least by measurement of body weight. We may be approaching maximal hospital benefit. Defer discharge decision to nephrology. This note was completed using [employer] voice recognition software. There may be hair and makeup designer errors as a result. Current Visit: Yes Qualifiers: Acute renal failure type: with other specified pathological lesion Hospitalist: Subjective Interval history: Follow-up focal segmental glomerulosclerosis with chronic kidney disease and nephrotic syndrome. The patient continues to complain of edema. I note that he has lost 4 kg over the past 48 hours. He continues to diurese well. Nephrology is managing the kidney disease, including immunosuppressive's. The patient's appetite is good. He ate all of his breakfast. Exam - Constitutional Vitals: Period Temp Pulse Resp BP Sys/Arguello Pulse Ox Last 24 Hr 96.1 F-98.3 F 45-51 17-20 144-183/67-84 95-97 Vital signs are noted above. Heart is regular with distant tones and no murmur detected. Lungs are clear with no rales or wheezes. Abdomen is protuberant with positive bowel sounds. He has several millimeters of edema. He is awake and alert Results - Labs CBC & BMP: 03/01/17 05:26 03/03/17 04:14 Lab Results: I have reviewed the past 24 hour labs
[2017-03-04] MEDS: ATORVASTATIN 20 MG TABLET PO SCH (09:18)
[2017-03-04] MEDS: amLODIPine 5 MG TABLET PO SCH (09:18)
[2017-03-04] MEDS: predniSONE 10 MG TABLET PO SCH (09:18)
[2017-03-04] MEDS: PANTOPRAZOLE 40 MG TABLET PO SCH (09:19)
[2017-03-04] MEDS: MYCOPHENOLATE MOFETIL 250 MG CAPSULE PO SCH ×2 (09:19→20:52)
[2017-03-04] MEDS: metOLazone 5 MG TABLET PO SCH (09:20)
[2017-03-04] MEDS: FUROSEMIDE 40 MG/4 ML VIAL IV SCH (09:20)
--- NOTE | 2017-03-04 12:32 | Nephrology Progress Note ---
Nephrology - PN: Subj Interval history: Patient is in the process of getting his kidney biopsy. No acute changes. Serum creatinine is noted be 3.9. At present, serologic workup has been unremarkable. DAMON unremarkable. Complement levels are normal. Hepatitis panel is normal. Pending studies for anti-GBM antibody. We will also check an HIV. 03/04/2017. The patient is resting comfortably. Kidney biopsy showed evidence of focal segmental nephrosclerosis. He has received pulse steroids. Continues to have edema. Serum creatinine is noted to be 4.5. At this time continuing with current management for this patient. Exam (PN)-Nephrology - Vital Signs Vital signs: Period Temp Pulse Resp BP Sys/Arguello Pulse Ox Last 24 Hr 96.4 F-98.3 F 45-51 17-20 146-183/72-84 95-97 - General Appearance General appearance: well-developed, well-nourished Neck: supple Respiratory: clear - Lab 03/01/17 05:26 03/03/17 04:14 Most recent lab results Calcium 7.2 MG/DL (8.5-10.1) L 03/03/17 04:14 Phosphorus 7.7 MG/DL (2.5-4.9) H 03/03/17 04:14 Magnesium 3.2 MG/DL (1.8-2.4) H 02/27/17 16:11 Assessment and Plan (1) Proteinuria Status: Acute Assessment and plan: Acute on chronic phenomenon. Will quantitate proteinuria. Plan for kidney biopsy. Patient has a history of minimal change versus FSGS that dates back to kidney biopsy done in 2010. FSGS. 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 Avoid nephrotoxic agents. Strict I's and O's. Daily weights. Agree with Lasix therapy. We will do pulse steroids for the next 3 days with 1 g stent Solu-Medrol for the next 3 days. Patient will transition to p.o. prednisone. Current Visit: Yes Qualifiers: Acute renal failure type: with other specified pathological lesion (3) Hypertension Status: Chronic Current Visit: Yes Qualifiers: Hypertension type: essential hypertension Qualified Code(s): I10 - Essential (primary) hypertension (4) Swelling Status: Acute Assessment and plan: Agree with Lasix therapy. Lasix 80 mg p.o. 3 times daily. Metolazone 5 mg p.o. 3 times daily. Low-salt diet. Current Visit: Yes (5) Obstructive sleep apnea Status: Chronic Current Visit: Yes
[2017-03-04] MEDS: FUROSEMIDE 80 MG TABLET PO SCH (20:51)
[2017-03-05 05:39] LABS: Calcium 8.1 MG/DL (8.5-10.1); Osmolality,Calculated 312.5 MOS/KG (273-304); Potassium 4.1 MMOL/L (3.5-5.1)
--- NOTE | 2017-03-05 08:58 | Nephrology Progress Note ---
Nephrology - PN: Subj Interval history: Patient is in the process of getting his kidney biopsy. No acute changes. Serum creatinine is noted be 3.9. At present, serologic workup has been unremarkable. DAMON unremarkable. Complement levels are normal. Hepatitis panel is normal. Pending studies for anti-GBM antibody. We will also check an HIV. 03/04/2017. The patient is resting comfortably. Kidney biopsy showed evidence of focal segmental nephrosclerosis. He has received pulse steroids. Continues to have edema. Serum creatinine is noted to be 4.5. At this time continuing with current management for this patient. 03/05/2017. The patient is resting comfortably. Continues to have some weight loss with diuretic management. Of note, serum creatinine is now down to 3.2. This is a first trend downward for this patient's renal function. At this time recommend continue with current dose of Solu-Medrol. Continue with his current dose of diuretics which is 80 of Lasix p.o. 3 times daily. Moreover continue with metolazone 5 mg daily. At this time patient can follow with me in 1 week with a BMP. Exam (PN)-Nephrology - Vital Signs Vital signs: Period Temp Pulse Resp BP Sys/Arguello Pulse Ox Last 24 Hr 97.5 F-97.8 F 56-76 18-20 139-178/69-90 95-96 - General Appearance General appearance: well-developed, well-nourished Neck: supple Respiratory: clear Cardiology: edema (3 + edema), regular rate, regular rhythm Gastrointestinal: normoactive bowel sounds Neurologic: alert and oriented x3 Musculoskeletal: no clubbing Psychiatric: mood/affect appropriate, cooperative - Lab 03/01/17 05:26 03/05/17 04:35 Most recent lab results Calcium 8.1 MG/DL (8.5-10.1) L 03/05/17 04:35 Phosphorus 7.7 MG/DL (2.5-4.9) H 03/03/17 04:14 Magnesium 3.2 MG/DL (1.8-2.4) H 02/27/17 16:11 Assessment and Plan (1) Proteinuria Status: Acute Assessment and plan: Acute on chronic phenomenon. Will quantitate proteinuria. Plan for kidney biopsy. Patient has a history of minimal change versus FSGS that dates back to kidney biopsy done in 2010. FSGS. 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 Avoid nephrotoxic agents. Strict I's and O's. Daily weights. Agree with Lasix therapy. We will do pulse steroids for the next 3 days with 1 g stent Solu-Medrol for the next 3 days. Patient will transition to p.o. prednisone. Current Visit: Yes Qualifiers: Acute renal failure type: with other specified pathological lesion (3) Hypertension Status: Chronic Current Visit: Yes Qualifiers: Hypertension type: essential hypertension Qualified Code(s): I10 - Essential (primary) hypertension (4) Swelling Status: Acute Assessment and plan: Agree with Lasix therapy. Lasix 80 mg p.o. 3 times daily. Metolazone 5 mg p.o. 3 times daily. Low-salt diet. Current Visit: Yes (5) Obstructive sleep apnea Status: Chronic Current Visit: Yes
[2017-03-05] MEDS ORDERED: SIMETHICONE CHEW 125 MG TABLET PO PRN (09:08)
[2017-03-05] MEDS: MYCOPHENOLATE MOFETIL 250 MG CAPSULE PO SCH (09:26)
[2017-03-05] MEDS: ATORVASTATIN 20 MG TABLET PO SCH (09:26)
[2017-03-05] MEDS: metOLazone 5 MG TABLET PO SCH (09:28)
[2017-03-05] MEDS: PANTOPRAZOLE 40 MG TABLET PO SCH (09:28)
[2017-03-05] MEDS: FUROSEMIDE 80 MG TABLET PO SCH (09:28)
[2017-03-05] MEDS: predniSONE 10 MG TABLET PO SCH (09:28)
--- NOTE | 2017-03-05 10:40 | Discharge Summary ---
Hospital Course - Hospital Course Hospital Course: Discharge diagnosis: Focal segmental glomerulosclerosis Hypertension The patient presented to the hospital with worsening renal function and generalized edema. Nephrology saw the patient. Patient underwent kidney biopsy. He was found to have focal segmental glomerulosclerosis. He was treated with diuretics and steroids. He has improved, although he still has quite a bit of extra fluid. This will be managed as an outpatient with oral diuretics and oral steroids. He will follow up with nephrology. Medication reconciliation has been performed. Renal diet. Activity as tolerated. Follow-up with nephrology next week. This note was completed using [employer] voice recognition software. There may be medical stenographer errors as a result. Diagnosis - Discharge Diagnosis (1) Acute on chronic renal failure Status: Acute Specialty Discharge - Follow Up or Referrals Follow up with: Gonzalo Taylor Jr., MD [Physician] - 03/12/17 11:15 am (1 WEEK WITH BMP) Discharge Plan - Discharge Data Disposition: Disch To Home/Self Care Condition at Discharge: Stable Discharge Diet: advance to your usual diet Activity: resume usual activities as tolerated Hygiene: no restrictions Weight Bearing at Discharge: full weight bearing Driving: no restrictions - Discharge Medications New metOLazone [Zaroxolyn] 5 mg PO DAILY #90 tablet NIFEdipine XL TAB [Procardia Xl] 60 mg PO DAILY #30 tablet predniSONE TAB [PredniSONE] 30 mg PO DAILY #30 tablet Furosemide Tab [Lasix Tab] 80 mg PO TID #90 tablet Mycophenolate Mofetil Cap [Cellcept] 500 mg PO BID #60 capsule Continue cloNIDine TAB [Catapres Tab] 0.2 mg PO BID Atorvastatin [Lipitor] 20 mg PO DAILY Omeprazole 20 mg PO DAILY Aspirin EC Tab 81 mg PO DAILY Potassium Chloride [Klor-Con M20] 20 meq PO DAILY Discontinued Furosemide Tab [Lasix Tab] 40 mg PO BID DIURETIC metOLazone [Metolazone] 5 mg PO DAILY - Follow Up or Referral Follow Up: Gonzalo Taylor Jr., MD [Physician] - 03/12/17 11:15 am (1 WEEK WITH BMP) - Forms/Instructions Instructions: Low Sodium Diet (DC) Exam - Constitutional Vitals: Period Temp Pulse Resp BP Sys/Arguello Pulse Ox Last 24 Hr 97.5 F-97.8 F 56-83 18-20 139-195/69-90 95-96 Heart is regular with a soft systolic murmur. He has a few rales in the chest. Abdomen is protuberant with good bowel sounds. He has several millimeters of pretibial edema, unchanged from yesterday. He is awake and alert Discharge Results Labs on day of discharge: Labs from last 24 hours 03/05/17 04:35 Sodium 139 Potassium 4.1 Chloride 102 Carbon Dioxide 26 Anion Gap 15.1 H BUN 108 H Creatinine 3.20 H GFR Calculation 32 BUN/Creatinine Ratio 33.00 H Glucose 127 H Calculated Osmolality 312.5 H Calcium 8.1 L DS: Provider Date of admission: 02/28/17 12:58 Primary care physician: Kendrick Xavier Attending physician on admission: Harriet Jackson MD Consults: 02/27/17 15:38 Consult to Physician [CONS] Routine Comment: acute renal failure Consulting Provider: Gonzalo Taylor Jr. Consulting Provider Notified: Yes When should Consulting Provider be notified: Now Consult to Specialist Group: Nephrology When should Consulting Provider be notified: Now Person Notified: YASMINE Date Notified: 02/28/17 Time Notified: 09:45 Discharging clinician: Hilario Rapp MD Expected date of discharge: 03/05/17
[2017-03-05 11:53] VITALS: BP 129/82
--- NOTE | 2017-03-06 18:17 | Pathology Report from [facility] ---
[facility] [place] ACCESSION # : [id number] PATIENT NAME : Ramesh Robbins ORDERING DR : Kendrick Bush MD CLINICAL HX: Acute chronic renal failure POST-OP DX: Same SPECIMEN INFO: #1 Renal biopsy in formalin #2 Renal biopsy in Jaya fixative GROSS DESCRIPTION: #1 Received in formalin labeled with the patients name RAMESH ROBBINS and #1 RENAL BX is a renal biopsy to be packed and shipped to [facility] for evaluation.#2 Received in Jaya fixative labeled with the patients name RAMESH ROBBINS and #2 RENAL BX is a renal biopsy to be packed and shipped to [facility] for evaluation. DIAGNOSIS FOR RAMESH ROBBINS: The following is the kidney biopsy report from [facility] Olvera MD., [place], [place]:#1 AND #2 KIDNEY, BIOPSY: Acute tubular injury. Focal segmental glomerulosclerosis, not otherwise specified. Global glomerulosclerosis (2/20). Thin glomerular basement membranes. Interstitial fibrosis, minimal. Arteriosclerosis, severe.Comment: There is no evidence of an immune-mediated glomerulonephritis or a paraprotein- associated disease. This biopsy was read in conjunction with a previous biopsy. COLLECTED DATE: 02/28/2017 [facility] REPORT DATE: 03/06/2017 ELECTRONICALLY SIGNED BY: Francine Gama M.D. 03/06/2017 - 12:32:30 [facility]
== END 2017-03-05 12:48 | disposition home or self-care (01) | DRG 683 ==
LOC: N.4E 13:42 → N.4EOUT 13:42 → SUATTDRO 02-28 12:58 → N.4E 02-28 12:58 → EDSTATUS 03-01 13:48
PROVIDERS: ADMIT Internal Medicine; ATTEND Internal Medicine Geriatric Medicine

== ENCOUNTER 2017-04-25 11:02 | Inpatient (IN) ==
[2017-04-25] MEDS ORDERED: ONDANSETRON 4 MG TABLET PO PRN (12:04)
[2017-04-25] MEDS ORDERED: ALBUTEROL 2.5 MG/3 ML NEB RESP TX PRN (12:04)
--- NOTE | 2017-04-25 12:10 | Nephrology History & Physical ---
History of Present Illness Chief complaint: Shortness of breath, swelling. History of present illness: Mr. Robbins is a 57 year old male history of focal segmental glomerulosclerosis by kidney biopsy that was done last month. Patient has continued to have increased swelling that includes weeping from his legs. Serum creatinine has trended up to 4.0 since his last hospitalization. He was started on CellCept and continued on prednisone. Today he presented to clinic with increased swelling and weeping of his legs. He has increased his Lasix therapy however swelling continues. He has been on prednisone as well as CellCept. However symptoms continued to worsen. No fevers or chills. No chest pain. There have been no changes in patient's medications. He is holding his Procardia at this time due to swelling. Blood pressures been acceptable. He is agreeable to be admitted to have more Lasix therapy and help with his lower extremity swelling. Home Medications Medication Instructions Recorded Confirmed Type Aspirin EC Tab 81 mg PO DAILY 02/27/17 02/27/17 History Atorvastatin [Lipitor] 20 mg PO DAILY 02/27/17 02/27/17 History Omeprazole 20 mg PO DAILY 02/27/17 02/27/17 History Potassium Chloride [Klor-Con M20] 20 meq PO DAILY 02/27/17 02/27/17 History cloNIDine TAB [Catapres Tab] 0.2 mg PO BID 02/27/17 02/27/17 History Furosemide Tab [Lasix Tab] 80 mg PO TID #90 tablet 03/05/17 Rx Mycophenolate Mofetil Cap 500 mg PO BID #60 capsule 03/05/17 Rx [Cellcept] NIFEdipine XL TAB [Procardia Xl] 60 mg PO DAILY #30 tablet 03/05/17 Rx metOLazone [Zaroxolyn] 5 mg PO DAILY #90 tablet 03/05/17 Rx predniSONE TAB [PredniSONE] 30 mg PO DAILY #30 tablet 03/05/17 Rx Allergies Allergy/AdvReac Type Severity Reaction Status Date / Time fenofibrate AdvReac Severe Difficulty Verified 02/27/17 15:46 Breathing Review of Systems Constitutional: fatigue Nose, mouth and throat: no hoarseness Cardiovascular: dyspnea, dyspnea on exertion, no chest pain at rest Respiratory: dyspnea Gastrointestinal: bloating, no abdominal pain Genitourinary: no difficulty urinating, no dysuria Medical,Surgical,& Family Hx - Medical History Cardio: History of: Hypertension Neurology: History of: Seizures Endocrine: History of: Dyslipidemia No history of: Diabetes Mellitus (IDDM), Diabetes Mellitus (NIDDM) Respiratory: History of: Obstructive Sleep Apnea Musculoskeletal: History of: Herniated Disk (back surgery) - Surgical History Cardiac Surgeries: Patient Denies: Cardiac Catheterization Abdominal Surgeries: Surgical HX of: Appendectomy Reproductive Surgeries: Patient denies;: Genitourinary Surgery Orthopedic Surgeries: Surgical HX of;: Orthopedic Surgery (back surgery) - Family History Family History: Reports;: Family Cancer (mother), Family Hypertension (mother and daddy), Family Stroke (mother,brother) Denies;: Family Diabetes - Social History Smoking Status: Never smoker Exam - Nephrology - General Appearance General appearance: well-developed, well-nourished EENT: ATNC Neck: supple Respiratory: clear Cardiology: no murmurs, no rub, edema (3+), regular rate, regular rhythm Gastrointestinal: normoactive bowel sounds, no tenderness Integumentary: no rash Neurologic: alert and oriented x3, CN 3-12 intact Musculoskeletal: no clubbing Psychiatric: mood/affect appropriate, cooperative
[2017-04-25 13:19] LABS: Basophils % 0.2 % (0.0-0.8); Eosinophils # 0.2 10*3/uL (0.0-0.87); Eosinophils % 0.9 % (0.00-10.9); Hematocrit 39.2 VOL% (42.0-52.0); Hemoglobin 12.4 GM/DL (14.0-18.0); Immature Granulocytes % 0.9 %; Immature Granulocytes Absolute 0.15 #; Lymphocytes # 3.5 10*3/uL (1.4-4.0); Lymphocytes % 21.9 % (21.2-54.2); Mean Corpuscular HGB Conc 31.6 GM/DL (32-36); Mean Corpuscular Hemoglobin 28 PG (27-34); Mean Corpuscular Volume 89.9 FL (87-102); Mean Platelet Volume 10.4 FL (9.6-12.0); Monocytes # 1.3 10*3/uL (0.11-0.8); Monocytes % 8.2 % (1.7-12.7); Neutrophils # 10.8 10*3/uL (1.4-7.4); Neutrophils % 67.9 % (38.7-73.9); Platelet Count 458 T/CUMM (130-400); Red Blood Count 4.36 MC/CUMM (3.8-5.5); Red Cell Distribution Width 13.1 % (9.3-17.3); White Blood Count 15.9 T/CUMM (4-12)
--- NOTE | 2017-04-25 13:30 | XRay Report ---
XR chest 2V Date: 04/25/2017 12:05 PM History: Shortness of breath Comparison: 02/27/2017 Technique: PA and lateral chest Findings: The heart is normal in size. Calcified granulomata/nodes with minimal chronic scarring. Minimal atelectasis at the lung bases. Degenerative changes are noted with stable mediastinum. Impression: Chronic scarring with minimal atelectasis at the lung bases. PROCEDURE INTERPRETED AT [facility] DEPARTMENT OF RADIOLOGY Final Report Signed by: Dr. Zuleyma Del Cid
[2017-04-25] MEDS: FUROSEMIDE 40 MG/4 ML VIAL IV SCH ×2 (13:38→18:22)
[2017-04-25] MEDS: ENOXAPARIN 30 MG/0.3 ML SYRINGE SUBCUT SCH (13:38)
[2017-04-25] MEDS ORDERED: PNEUMOCOCCAL VACCINE (23 VALENT) 0.5 ML VIAL IM ONE (18:00)
[2017-04-25] MEDS ORDERED: INFLUENZA VIRUS VACCINE 0.5 ML SYRINGE IM ONE (18:00)
[2017-04-25] MEDS ORDERED: MYCOPHENOLATE MOFETIL 250 MG CAPSULE PO SCH (21:00)
[2017-04-25] MEDS ORDERED: metOLazone 5 MG TABLET PO SCH (21:00)
[2017-04-25] MEDS: predniSONE 20 MG TABLET PO SCH (21:24)
[2017-04-25] MEDS: hydrALAZINE 25 MG TABLET PO SCH (21:24)
[2017-04-25] MEDS: CARVEDILOL 25 MG TABLET PO SCH (21:27)
[2017-04-26] MEDS: FUROSEMIDE 40 MG/4 ML VIAL IV SCH ×4 (00:57→17:46)
[2017-04-26 05:56] LABS: Albumin 0.9 G/DL (3.4-5.0); Calcium 7.9 MG/DL (8.5-10.1); Osmolality,Calculated 310.7 MOS/KG (273-304); Phosphorous 5.7 MG/DL (2.5-4.9); Potassium 5.4 MMOL/L (3.5-5.1)
[2017-04-26 06:00] LABS: Basophils % 0.3 % (0.0-0.8); Eosinophils % 0.4 % (0.00-10.9); Hematocrit 37.3 VOL% (42.0-52.0); Hemoglobin 11.5 GM/DL (14.0-18.0); Immature Granulocytes % 1.2 %; Immature Granulocytes Absolute 0.12 #; Lymphocytes # 1.7 10*3/uL (1.4-4.0); Lymphocytes % 17.5 % (21.2-54.2); Mean Corpuscular HGB Conc 30.8 GM/DL (32-36); Mean Corpuscular Hemoglobin 28 PG (27-34); Mean Corpuscular Volume 91.9 FL (87-102); Mean Platelet Volume 11.2 FL (9.6-12.0); Monocytes # 0.3 10*3/uL (0.11-0.8); Monocytes % 3.4 % (1.7-12.7); Neutrophils # 7.6 10*3/uL (1.4-7.4); Neutrophils % 77.2 % (38.7-73.9); Platelet Count 381 T/CUMM (130-400); Red Blood Count 4.06 MC/CUMM (3.8-5.5); Red Cell Distribution Width 13.1 % (9.3-17.3); White Blood Count 9.8 T/CUMM (4-12)
--- NOTE | 2017-04-26 06:34 | Physician Query Form ---
CLICK EDIT DOCUMENT TO SELECT QUERY ANSWER --> OK --> SIGN Haven Barron RN, CCDS Certified Clinical [employer] Attendant W) [phone] (f) [phone] [email or web address] PROVIDERS: Make your selection(s) from the choices in EACH section by typing an "x" and enter comments in the comment section. Please use your independent medical judgment in providing your response. This request does not imply that any particular answer is desired or expected. CLINICAL INDICATORS: (Providers should not edit this section) "Patient has continued to have increased swelling that includes weeping from his legs. Serum creatinine has trended up to 4.0 since his last hospitalization ". Patient was treated with IV Lasix. Clarify which of the following most accurately represents the patient's renal status: ( ) Acute kidney injury (non-traumatic) ( ) Acute renal failure ( x) Acute renal failure with underlying Chronic Kidney Disease (CKD) - please provide stage below ( ) Acute renal failure with pathological renal lesion ( ) Acute renal failure with necrosis ( ) tubular ( ) medullary ( ) cortical ( ) CKD - please provide stage below ( ) End Stage Renal Disease ( ) Acute interstitial nephritis ( ) Hepatorenal syndrome ( ) Other, please specify: ( ) Clinically unable to determine Chronic Kidney Disease Stages Source: National Kidney Disease Foundation ( ) Stage I (eGFR > or = 90) ( ) Stage II (eGFR 60 - 89) ( ) Stage III (eGFR 30 - 59) ( x) Stage IV (eGFR 15 - 29) ( ) Stage V (eGFR < 15 or dialysis) COMMENTS: PLEASE ALSO DOCUMENT RESPONSE IN PROGRESS NOTES AND/OR DISCHARGE SUMMARY Use of terms such as suspected, likely, or probable (associated with a specific diagnosis that is being evaluated, monitored, or treated as if it exists) are acceptable and can be restated in the discharge summary if not ruled out. MTDD
[2017-04-26] MEDS ORDERED: predniSONE 10 MG TABLET PO SCH (09:00)
[2017-04-26] MEDS: predniSONE 20 MG TABLET PO SCH (09:10)
[2017-04-26] MEDS: CARVEDILOL 25 MG TABLET PO SCH ×2 (09:10→20:57)
[2017-04-26] MEDS: ATORVASTATIN 20 MG TABLET PO SCH (09:10)
[2017-04-26] MEDS: POTASSIUM CHLORIDE 20 MEQ TABLET PO SCH (09:10)
[2017-04-26] MEDS: ASPIRIN EC 81 MG TABLET PO SCH (09:10)
[2017-04-26] MEDS: PANTOPRAZOLE 40 MG TABLET PO SCH (09:10)
[2017-04-26] MEDS: hydrALAZINE 25 MG TABLET PO SCH ×2 (09:12→20:55)
--- NOTE | 2017-04-26 10:38 | Nephrology Progress Note ---
Nephrology - PN: Subj Interval history: Patient is resting comfortably no acute changes. Lower extremity swelling is improving. Serum creatinine is 3.1 today. Continue with Lasix therapy. BMP in a.m. Exam (PN)-Nephrology - Vital Signs Vital signs: Period Temp Pulse Resp BP Sys/Arguello Pulse Ox Last 24 Hr 97.3 F-98.1 F 56-65 18-20 131-152/70-84 96-99 - General Appearance General appearance: well-developed, well-nourished EENT: ATNC Neck: supple Respiratory: clear Cardiology: edema (2+ edema), regular rate, regular rhythm Gastrointestinal: normoactive bowel sounds, no tenderness, no guarding Neurologic: alert and oriented x3 Musculoskeletal: no clubbing Psychiatric: mood/affect appropriate, cooperative - Lab 04/26/17 04:57 04/26/17 04:57 Most recent lab results Calcium 7.9 MG/DL (8.5-10.1) L 04/26/17 04:57 Phosphorus 5.7 MG/DL (2.5-4.9) H 04/26/17 04:57 Assessment and Plan (1) Hypertension Status: Chronic Current Visit: No Qualifiers: Hypertension type: essential hypertension Qualified Code(s): I10 - Essential (primary) hypertension (2) Swelling Status: Acute Current Visit: No (3) Obstructive sleep apnea Status: Chronic Current Visit: No (4) Proteinuria Status: Acute Current Visit: No (5) Chronic kidney disease Status: Chronic Current Visit: Yes Qualifiers: Chronic kidney disease stage: stage 3 (moderate) Qualified Code(s): N18.3 - Chronic kidney disease, stage 3 (moderate)
[2017-04-26] MEDS: ENOXAPARIN 30 MG/0.3 ML SYRINGE SUBCUT SCH (11:50)
[2017-04-26] MEDS ORDERED: CARVEDILOL 25 MG TABLET PO SCH (21:00)
[2017-04-26] MEDS ORDERED: hydrALAZINE 25 MG TABLET PO SCH (21:00)
[2017-04-26] MEDS: ALBUTEROL 2.5 MG/3 ML NEB RESP TX SCH (23:56)
[2017-04-27] MEDS: ALBUTEROL 2.5 MG/3 ML NEB RESP TX SCH ×2 (00:01→19:43)
[2017-04-27] MEDS: FUROSEMIDE 40 MG/4 ML VIAL IV SCH ×4 (00:26→18:18)
[2017-04-27] MEDS ORDERED: FUROSEMIDE 100 MG/10 ML VIAL ONE (05:30)
[2017-04-27 06:34] LABS: Basophils % 0.2 % (0.0-0.8); Eosinophils # 0.2 10*3/uL (0.0-0.87); Eosinophils % 1.5 % (0.00-10.9); Hematocrit 34.8 VOL% (42.0-52.0); Hemoglobin 11.1 GM/DL (14.0-18.0); Immature Granulocytes % 0.7 %; Immature Granulocytes Absolute 0.11 #; Lymphocytes # 3.7 10*3/uL (1.4-4.0); Lymphocytes % 24.3 % (21.2-54.2); Mean Corpuscular HGB Conc 31.9 GM/DL (32-36); Mean Corpuscular Hemoglobin 29 PG (27-34); Mean Corpuscular Volume 90.6 FL (87-102); Mean Platelet Volume 11.4 FL (9.6-12.0); Monocytes # 1.3 10*3/uL (0.11-0.8); Monocytes % 8.3 % (1.7-12.7); Platelet Count 384 T/CUMM (130-400); Red Blood Count 3.84 MC/CUMM (3.8-5.5); Red Cell Distribution Width 13.1 % (9.3-17.3); White Blood Count 15.4 T/CUMM (4-12)
[2017-04-27 06:44] LABS: Albumin 0.9 G/DL (3.4-5.0); Osmolality,Calculated 315.4 MOS/KG (273-304); Potassium 4.6 MMOL/L (3.5-5.1)
[2017-04-27] MEDS: PANTOPRAZOLE 40 MG TABLET PO SCH (08:47)
[2017-04-27] MEDS: predniSONE 20 MG TABLET PO SCH (08:47)
[2017-04-27] MEDS: POTASSIUM CHLORIDE 20 MEQ TABLET PO SCH (08:47)
[2017-04-27] MEDS: ATORVASTATIN 20 MG TABLET PO SCH (08:47)
[2017-04-27] MEDS: ASPIRIN EC 81 MG TABLET PO SCH (08:47)
[2017-04-27] MEDS: hydrALAZINE 25 MG TABLET PO SCH ×2 (08:47→21:39)
[2017-04-27] MEDS: CARVEDILOL 25 MG TABLET PO SCH ×2 (08:48→21:39)
[2017-04-27] MEDS ORDERED: predniSONE 10 MG TABLET PO SCH (09:00)
[2017-04-27] MEDS: ENOXAPARIN 30 MG/0.3 ML SYRINGE SUBCUT SCH (13:48)
[2017-04-27] MEDS: BISACODYL 5 MG TABLET PO PRN (13:48)
[2017-04-27] MEDS ORDERED: ALBUMIN 25% 25 GM in PREMIX 1 EACH IV ONE ×2 (15:02→18:00)
--- NOTE | 2017-04-27 15:16 | Nephrology Progress Note ---
Nephrology - PN: Subj Interval history: Patient is resting comfortably no acute changes. Lower extremity swelling is improving. Serum creatinine is 3.1 today. Continue with Lasix therapy. BMP in a.m. 04/27/2017. The patient is resting. Still has a lot of edema in the lower extremities. Serum creatinine has been 3.1 today. Continue with IV Lasix every 6 hours. We will also add albumin 25% today. BMP in a.m. Patient is encouraged to keep legs elevated. Exam (PN)-Nephrology - Vital Signs Vital signs: Period Temp Pulse Resp BP Sys/Arguello Pulse Ox Last 24 Hr 97.3 F-97.9 F 50-67 17-20 131-184/68-98 96-98 - General Appearance General appearance: well-developed, obese EENT: ATNC Neck: supple Respiratory: clear Cardiology: edema, regular rate, regular rhythm Gastrointestinal: normoactive bowel sounds, no tenderness, no guarding Neurologic: alert and oriented x3, CN 3-12 intact Musculoskeletal: no deformities, no clubbing Psychiatric: mood/affect appropriate, cooperative - Lab 04/27/17 05:52 04/27/17 05:52 Most recent lab results Calcium 8.0 MG/DL (8.5-10.1) L 04/27/17 05:52 Phosphorus 6.0 MG/DL (2.5-4.9) H 04/27/17 05:52 Assessment and Plan (1) Hypertension Status: Chronic Current Visit: No Qualifiers: Hypertension type: essential hypertension Qualified Code(s): I10 - Essential (primary) hypertension (2) Swelling Status: Acute Current Visit: No (3) Obstructive sleep apnea Status: Chronic Current Visit: No (4) Proteinuria Status: Acute Current Visit: No (5) Chronic kidney disease Status: Chronic Current Visit: Yes Qualifiers: Chronic kidney disease stage: stage 3 (moderate) Qualified Code(s): N18.3 - Chronic kidney disease, stage 3 (moderate)
[2017-04-28] MEDS: FUROSEMIDE 40 MG/4 ML VIAL IV SCH ×4 (01:27→18:16)
[2017-04-28] MEDS ORDERED: FUROSEMIDE 100 MG/10 ML VIAL ONE (06:37)
[2017-04-28 07:35] LABS: Osmolality,Calculated 309.7 MOS/KG (273-304); Potassium 4.6 MMOL/L (3.5-5.1)
[2017-04-28 07:37] LABS: Albumin 1.3 G/DL (3.4-5.0); Calcium 7.8 MG/DL (8.5-10.1); Osmolality,Calculated 309.7 MOS/KG (273-304); Phosphorous 5.7 MG/DL (2.5-4.9); Potassium 4.5 MMOL/L (3.5-5.1)
[2017-04-28] MEDS: BISACODYL 5 MG TABLET PO PRN (08:58)
[2017-04-28] MEDS: POTASSIUM CHLORIDE 20 MEQ TABLET PO SCH (08:58)
[2017-04-28] MEDS: hydrALAZINE 25 MG TABLET PO SCH ×2 (08:58→21:11)
[2017-04-28] MEDS: ATORVASTATIN 20 MG TABLET PO SCH (08:58)
[2017-04-28] MEDS: CARVEDILOL 25 MG TABLET PO SCH ×2 (08:58→21:11)
[2017-04-28] MEDS: predniSONE 20 MG TABLET PO SCH (08:58)
[2017-04-28] MEDS: ASPIRIN EC 81 MG TABLET PO SCH (08:58)
[2017-04-28] MEDS: PANTOPRAZOLE 40 MG TABLET PO SCH (08:58)
[2017-04-28] MEDS ORDERED: ALBUMIN 25% 25 GM in PREMIX 1 EACH IV ONE (11:48)
--- NOTE | 2017-04-28 11:51 | Nephrology Progress Note ---
Nephrology - PN: Subj Interval history: Patient is resting comfortably no acute changes. Lower extremity swelling is improving. Serum creatinine is 3.1 today. Continue with Lasix therapy. BMP in a.m. 04/27/2017. The patient is resting. Still has a lot of edema in the lower extremities. Serum creatinine has been 3.1 today. Continue with IV Lasix every 6 hours. We will also add albumin 25% today. BMP in a.m. Patient is encouraged to keep legs elevated. 04/28/2017. The patient is resting comfortably. States that lower extremity swelling is slightly improved. Serum creatinine is now down to 2.9. Had approximately 2000 cc of urine output in the last 24 hours. At this tablet to 25% albumin today. We will continue with Lasix. Exam (PN)-Nephrology - Vital Signs Vital signs: Period Temp Pulse Resp BP Sys/Arguello Pulse Ox Last 24 Hr 97.3 F-98.4 F 45-68 17-20 131-161/68-92 96-98 - General Appearance General appearance: well-developed, well-nourished EENT: ATNC Neck: supple Respiratory: clear Cardiology: edema (3+ edema), regular rate, regular rhythm Gastrointestinal: normoactive bowel sounds, no tenderness Neurologic: alert and oriented x3, CN 3-12 intact Musculoskeletal: no clubbing Psychiatric: mood/affect appropriate, cooperative - Lab 04/27/17 05:52 04/28/17 04:53 Most recent lab results Calcium 7.8 MG/DL (8.5-10.1) L 04/28/17 04:53 Phosphorus 5.7 MG/DL (2.5-4.9) H 04/28/17 04:53 Assessment and Plan (1) Hypertension Status: Chronic Current Visit: No Qualifiers: Hypertension type: essential hypertension Qualified Code(s): I10 - Essential (primary) hypertension (2) Swelling Status: Acute Current Visit: No (3) Obstructive sleep apnea Status: Chronic Current Visit: No (4) Proteinuria Status: Chronic Current Visit: No (5) Chronic kidney disease Status: Chronic Current Visit: Yes Qualifiers: Chronic kidney disease stage: stage 3 (moderate) Qualified Code(s): N18.3 - Chronic kidney disease, stage 3 (moderate)
[2017-04-28] MEDS: ENOXAPARIN 30 MG/0.3 ML SYRINGE SUBCUT SCH (14:33)
[2017-04-28] MEDS: ALBUTEROL 2.5 MG/3 ML NEB RESP TX SCH (19:45)
[2017-04-29] MEDS: FUROSEMIDE 40 MG/4 ML VIAL IV SCH ×4 (01:21→19:05)
[2017-04-29 06:32] LABS: Osmolality,Calculated 313.6 MOS/KG (273-304); Potassium 4.1 MMOL/L (3.5-5.1)
[2017-04-29] MEDS: CARVEDILOL 25 MG TABLET PO SCH ×2 (08:49→21:46)
[2017-04-29] MEDS: ASPIRIN EC 81 MG TABLET PO SCH (08:50)
[2017-04-29] MEDS: POTASSIUM CHLORIDE 20 MEQ TABLET PO SCH (08:50)
[2017-04-29] MEDS: PANTOPRAZOLE 40 MG TABLET PO SCH (08:50)
[2017-04-29] MEDS: hydrALAZINE 25 MG TABLET PO SCH ×2 (08:50→21:45)
[2017-04-29] MEDS: ATORVASTATIN 20 MG TABLET PO SCH (08:50)
[2017-04-29] MEDS: predniSONE 20 MG TABLET PO SCH (08:50)
[2017-04-29] MEDS: ENOXAPARIN 30 MG/0.3 ML SYRINGE SUBCUT SCH (13:34)
[2017-04-29] MEDS ORDERED: ALBUMIN 25% 25 GM in PREMIX 1 EACH IV ONE (16:15)
--- NOTE | 2017-04-29 16:15 | Nephrology Progress Note ---
Nephrology - PN: Subj Interval history: Patient is resting comfortably no acute changes. Lower extremity swelling is improving. Serum creatinine is 3.1 today. Continue with Lasix therapy. BMP in a.m. 04/27/2017. The patient is resting. Still has a lot of edema in the lower extremities. Serum creatinine has been 3.1 today. Continue with IV Lasix every 6 hours. We will also add albumin 25% today. BMP in a.m. Patient is encouraged to keep legs elevated. 04/28/2017. The patient is resting comfortably. States that lower extremity swelling is slightly improved. Serum creatinine is now down to 2.9. Had approximately 2000 cc of urine output in the last 24 hours. At this tablet to 25% albumin today. We will continue with Lasix. 04/29/2017. Again more improvement in this patient. He is much more comfortable. Serum creatinine is now 2.9. Will continue with 25% albumin today. Continue with Lasix. Plan for patient to be discharged on tomorrow. Exam (PN)-Nephrology - Vital Signs Vital signs: Period Temp Pulse Resp BP Sys/Arguello Pulse Ox Last 24 Hr 96.8 F-98.4 F 46-72 17-20 122-161/70-82 96-99 - General Appearance General appearance: well-developed, well-nourished EENT: ATNC Neck: supple Respiratory: clear Cardiology: edema (2+), regular rate, regular rhythm Gastrointestinal: normoactive bowel sounds, no tenderness Neurologic: alert and oriented x3 Musculoskeletal: no clubbing Psychiatric: mood/affect appropriate, cooperative - Lab 04/27/17 05:52 04/29/17 05:38 Most recent lab results Calcium 8.0 MG/DL (8.5-10.1) L 04/29/17 05:38 Phosphorus 5.7 MG/DL (2.5-4.9) H 04/28/17 04:53 Assessment and Plan (1) Hypertension Status: Chronic Current Visit: No Qualifiers: Hypertension type: essential hypertension Qualified Code(s): I10 - Essential (primary) hypertension (2) Swelling Status: Acute Current Visit: No (3) Obstructive sleep apnea Status: Chronic Current Visit: No (4) Proteinuria Status: Chronic Current Visit: No (5) Chronic kidney disease Status: Chronic Current Visit: Yes Qualifiers: Chronic kidney disease stage: stage 3 (moderate) Qualified Code(s): N18.3 - Chronic kidney disease, stage 3 (moderate)
[2017-04-29] MEDS: ALBUTEROL 2.5 MG/3 ML NEB RESP TX SCH (19:58)
[2017-04-30] MEDS: FUROSEMIDE 40 MG/4 ML VIAL IV SCH ×2 (01:22→09:21)
[2017-04-30 07:39] LABS: Osmolality,Calculated 309.4 MOS/KG (273-304); Potassium 3.9 MMOL/L (3.5-5.1)
[2017-04-30 09:20] VITALS: BP 156/87
[2017-04-30] MEDS: CARVEDILOL 25 MG TABLET PO SCH (09:21)
--- NOTE | 2017-04-30 09:24 | Discharge Summary ---
Hospital Course - Hospital Course Hospital Course: This hospitalization included patient admitted for increased swelling and shortness of breath associated with elevated serum creatinine. He responded to IV Lasix and albumin therapy. His chest x-ray showed chronic scarring no overt volume overload. The patient's weight continued to improve. He was maintained on his current dose of prednisone. He is not transition to Lasix 80 mg twice daily. Moreover metolazone 5 mg daily has been added. Also, the serum creatinine trended down to 2.5. His Coreg was discontinued due to bradycardia. He has been hemodynamically stable. Patient was advised about low -salt diet and keeping legs elevated. At this time, he has remained reached maximal hospitalization and is prepared for discharge. - Time spent with patient Time with patient DS: Greater than 30 minutes Diagnosis - Discharge Diagnosis (1) Hypertension Status: Chronic (2) Swelling Status: Acute (3) Obstructive sleep apnea Status: Chronic (4) Proteinuria Status: Chronic (5) Chronic kidney disease Status: Chronic Discharge Plan - Discharge Data Disposition: Disch To Home/Self Care Condition at Discharge: Stable Discharge Diet: low salt diet, no caffiene Activity: resume usual activities as tolerated Hygiene: no restrictions Contact your physician if you experience:: fever over 101 - Discharge Medications New Aspirin EC Tab 81 mg PO DAILY tablet metOLazone [Metolazone] 5 mg PO DAILY #30 tablet Potassium Chloride Cap/Tab [K Dur] 20 meq PO DAILY tablet Continue cloNIDine TAB [Catapres Tab] 0.2 mg PO BID Atorvastatin [Lipitor] 20 mg PO DAILY Omeprazole 20 mg PO DAILY predniSONE TAB [PredniSONE] 20 mg PO DAILY Hydralazine HCl 25 mg PO BID Albuterol Sulfate [Ventolin HFA] 2 puffs INH BEDTIME Changed Furosemide 80 mg PO BID #60 Discontinued Aspirin EC Tab 81 mg PO DAILY Potassium Chloride [Klor-Con M20] 20 meq PO DAILY Carvedilol [Coreg] 25 mg PO BID - Follow Up or Referral - Forms/Instructions Additional Discharge Instructions: Follow up with Dr. Taylor in one week with [facility]. Exam - Constitutional Vitals: Period Temp Pulse Resp BP Sys/Arguello Pulse Ox Last 24 Hr 97.4 F-97.7 F 49-67 16-20 122-180/60-87 96-100 General appearance: over weight - Head Head exam: Present: normal inspection - Respiratory Respiratory exam: Present: clear to auscultation bilaterally - Cardiovascular Cardiovascular exam: Present: regular rate and rhythm - GI/Abdominal GI/Abdominal exam: Present: normal bowel sounds - Extremities Exam Extremities exam: Present: normal inspection - Back Exam Back exam: Present: normal inspection - Neurological Exam Neurological exam: Present: alert, oriented X3, CN II-XII intact - Psychiatric Psychiatric exam: Present: normal affect, normal mood - Skin Skin exam: Present: normal color Discharge Results Labs on day of discharge: Labs from last 24 hours 04/30/17 05:33 Sodium 147 H Potassium 3.9 Chloride 116 H Carbon Dioxide 19 L Anion Gap 15.9 H BUN 66 H D Creatinine 2.50 H GFR Calculation 43 BUN/Creatinine Ratio 26.00 H Glucose 84 Calculated Osmolality 309.4 H Calcium 8.0 L DS: Provider Date of admission: 04/25/17 12:04 Primary care physician: Kendrick Xavier Attending physician on admission: Gonzalo Taylor Jr., MD Discharging clinician: Gonzalo Taylor Jr., MD
[2017-04-30] MEDS: predniSONE 20 MG TABLET PO SCH (09:54)
[2017-04-30] MEDS: ATORVASTATIN 20 MG TABLET PO SCH (09:55)
[2017-04-30] MEDS: PANTOPRAZOLE 40 MG TABLET PO SCH (09:55)
[2017-04-30] MEDS: POTASSIUM CHLORIDE 20 MEQ TABLET PO SCH (09:55)
[2017-04-30] MEDS: ASPIRIN EC 81 MG TABLET PO SCH (09:55)
[2017-04-30] MEDS: hydrALAZINE 25 MG TABLET PO SCH (09:55)
== END 2017-04-30 12:15 | disposition home or self-care (01) | DRG 683 ==
LOC: N.5E 11:42 → SUATTDRO 12:04 → N.5E 04-28 05:11
PROVIDERS: ADMIT Internal Medicine Nephrology; ATTEND Internal Medicine Nephrology

== ENCOUNTER 2017-06-26 11:04 | Inpatient (IN) ==
[2017-06-26] MEDS: FUROSEMIDE 40 MG/4 ML VIAL IV SCH ×2 (14:48→21:45)
[2017-06-26] MEDS ORDERED: BISACODYL 5 MG TABLET PO PRN (19:22)
[2017-06-26] MEDS ORDERED: oxyCODONE/ACETAMINOPHEN 5-325 MG TABLET PO PRN (19:22)
[2017-06-26] MEDS ORDERED: ACETAMINOPHEN 325 MG TABLET PO PRN (19:22)
[2017-06-26] MEDS: hydrALAZINE 25 MG TABLET PO SCH (21:44)
[2017-06-26] MEDS: DOCUSATE SODIUM 100 MG CAPSULE PO SCH (21:45)
[2017-06-27] MEDS: FUROSEMIDE 40 MG/4 ML VIAL IV SCH ×4 (02:21→21:45)
[2017-06-27 07:30] LABS: Basophils # 0.1 10*3/uL (0.0-0.2); Basophils % 0.8 % (0.0-0.8); Eosinophils # 0.2 10*3/uL (0.0-0.87); Eosinophils % 2.5 % (0.00-10.9); Hemoglobin 8.5 GM/DL (14.0-18.0); Immature Granulocytes Absolute 0.08 #; Lymphocytes # 2.8 10*3/uL (1.4-4.0); Lymphocytes % 33.3 % (21.2-54.2); Mean Corpuscular HGB Conc 31.5 GM/DL (32-36); Mean Corpuscular Hemoglobin 28 PG (27-34); Mean Corpuscular Volume 89.7 FL (87-102); Mean Platelet Volume 10.7 FL (9.6-12.0); Monocytes # 1.1 10*3/uL (0.11-0.8); Monocytes % 12.5 % (1.7-12.7); Neutrophils # 4.2 10*3/uL (1.4-7.4); Neutrophils % 49.9 % (38.7-73.9); Platelet Count 468 T/CUMM (130-400); Red Blood Count 3.01 MC/CUMM (3.8-5.5); Red Cell Distribution Width 12.6 % (9.3-17.3); White Blood Count 8.4 T/CUMM (4-12)
[2017-06-27 07:59] LABS: Albumin 0.8 G/DL (3.4-5.0); Calcium 7.6 MG/DL (8.5-10.1); Osmolality,Calculated 300.6 MOS/KG (273-304); Phosphorous 5.1 MG/DL (2.5-4.9); Potassium 3.2 MMOL/L (3.5-5.1)
[2017-06-27] MEDS: DOCUSATE SODIUM 100 MG CAPSULE PO SCH ×2 (08:05→21:45)
[2017-06-27] MEDS: predniSONE 20 MG TABLET PO SCH (08:05)
[2017-06-27] MEDS: azaTHIOprine 50 MG TABLET PO SCH (08:05)
[2017-06-27] MEDS: ATORVASTATIN 40 MG TABLET PO SCH (08:05)
[2017-06-27] MEDS: hydrALAZINE 25 MG TABLET PO SCH ×2 (08:05→21:45)
[2017-06-27] MEDS: ASPIRIN EC 81 MG TABLET PO SCH (08:05)
[2017-06-27] MEDS: metOLazone 5 MG TABLET PO SCH (08:05)
[2017-06-27] MEDS: PANTOPRAZOLE 40 MG TABLET PO SCH (08:05)
[2017-06-27] MEDS: POTASSIUM CHLORIDE 20 MEQ TABLET PO SCH (08:05)
[2017-06-27] MEDS: ENOXAPARIN 30 MG/0.3 ML SYRINGE SUBCUT SCH (13:52)
[2017-06-27] MEDS: ALBUTEROL 2.5 MG/3 ML NEB RESP TX SCH (19:44)
[2017-06-28] MEDS: FUROSEMIDE 40 MG/4 ML VIAL IV SCH ×4 (01:52→20:08)
[2017-06-28 07:08] LABS: Basophils # 0.1 10*3/uL (0.0-0.2); Basophils % 0.5 % (0.0-0.8); Eosinophils # 0.1 10*3/uL (0.0-0.87); Hematocrit 26.1 VOL% (42.0-52.0); Hemoglobin 8.1 GM/DL (14.0-18.0); Immature Granulocytes % 0.7 %; Immature Granulocytes Absolute 0.07 #; Lymphocytes % 28.6 % (21.2-54.2); Mean Corpuscular Hemoglobin 28 PG (27-34); Mean Corpuscular Volume 90.3 FL (87-102); Mean Platelet Volume 10.4 FL (9.6-12.0); Monocytes # 1.1 10*3/uL (0.11-0.8); Monocytes % 10.5 % (1.7-12.7); Neutrophils # 6.1 10*3/uL (1.4-7.4); Neutrophils % 58.7 % (38.7-73.9); Platelet Count 436 T/CUMM (130-400); Red Blood Count 2.89 MC/CUMM (3.8-5.5); Red Cell Distribution Width 12.6 % (9.3-17.3); White Blood Count 10.3 T/CUMM (4-12)
[2017-06-28 07:42] LABS: Calcium 7.2 MG/DL (8.5-10.1); Osmolality,Calculated 298.7 MOS/KG (273-304); Potassium 3.1 MMOL/L (3.5-5.1)
[2017-06-28] MEDS: PANTOPRAZOLE 40 MG TABLET PO SCH (09:17)
[2017-06-28] MEDS: predniSONE 20 MG TABLET PO SCH (09:17)
[2017-06-28] MEDS: azaTHIOprine 50 MG TABLET PO SCH (09:17)
[2017-06-28] MEDS: ASPIRIN EC 81 MG TABLET PO SCH (09:17)
[2017-06-28] MEDS: DOCUSATE SODIUM 100 MG CAPSULE PO SCH ×2 (09:17→20:14)
[2017-06-28] MEDS: hydrALAZINE 25 MG TABLET PO SCH ×2 (09:17→20:14)
[2017-06-28] MEDS: ATORVASTATIN 40 MG TABLET PO SCH (09:17)
[2017-06-28] MEDS: POTASSIUM CHLORIDE 20 MEQ TABLET PO SCH (09:17)
[2017-06-28] MEDS: metOLazone 5 MG TABLET PO SCH ×2 (09:18→14:14)
[2017-06-28] MEDS ORDERED: ALBUMIN 25% 25 GM in PREMIX 1 EACH IV ONE (11:30)
[2017-06-28] MEDS: ENOXAPARIN 30 MG/0.3 ML SYRINGE SUBCUT SCH (14:14)
[2017-06-28] MEDS: ALBUTEROL 2.5 MG/3 ML NEB RESP TX SCH (19:21)
[2017-06-29] MEDS: FUROSEMIDE 40 MG/4 ML VIAL IV SCH ×4 (01:59→19:43)
[2017-06-29 06:48] LABS: Calcium 7.5 MG/DL (8.5-10.1); Magnesium 2.3 MG/DL (1.8-2.4); Osmolality,Calculated 299.6 MOS/KG (273-304); Potassium 3.5 MMOL/L (3.5-5.1)
[2017-06-29] MEDS: PANTOPRAZOLE 40 MG TABLET PO SCH (08:36)
[2017-06-29] MEDS: ASPIRIN EC 81 MG TABLET PO SCH (08:36)
[2017-06-29] MEDS: POTASSIUM CHLORIDE 20 MEQ TABLET PO SCH (08:36)
[2017-06-29] MEDS: predniSONE 20 MG TABLET PO SCH (08:36)
[2017-06-29] MEDS: DOCUSATE SODIUM 100 MG CAPSULE PO SCH ×2 (08:37→20:01)
[2017-06-29] MEDS: hydrALAZINE 25 MG TABLET PO SCH ×2 (08:37→20:01)
[2017-06-29] MEDS: ATORVASTATIN 40 MG TABLET PO SCH (08:37)
[2017-06-29] MEDS: azaTHIOprine 50 MG TABLET PO SCH (08:37)
[2017-06-29] MEDS: metOLazone 5 MG TABLET PO SCH (08:37)
[2017-06-29] MEDS: ENOXAPARIN 30 MG/0.3 ML SYRINGE SUBCUT SCH (11:56)
[2017-06-29 16:14] VITALS: BP 143/75
[2017-06-29] MEDS: ALBUTEROL 2.5 MG/3 ML NEB RESP TX SCH (20:08)
== END 2017-06-29 20:23 | disposition home health service (06) | DRG 684 ==
LOC: N.5E 11:54
PROVIDERS: ADMIT Internal Medicine Nephrology; ATTEND Internal Medicine Nephrology